=== PATIENT | male | born 1980 | race Hispanic/Latino ===

== ENCOUNTER 2024-09-28 21:14 | Emergency (ER) | payer OTHER, SELFPAY ==
[2024-09-28 21:14] VITALS: BMI 30.4
[2024-09-28 21:16] VITALS: BP 122/87
[2024-09-28 22:00] VITALS: BP 118/87
[2024-09-28] MEDS: XANAX 0.5 MG PO (22:23)
[2024-09-28 22:25] LABS: Urine Albumin Negative (Neg - Trace); Urine Bilirubin Negative (Negative); Urine Character Clear (Clear); Urine Color Yellow; Urine Glucose Negative (Negative); Urine Ketone Negative (Negative); Urine Leukocyte Negative (Negative); Urine Nitrite Negative (Negative); Urine Occult Blood 1+ (Negative); Urine Urobilinogen Negative (Neg - 1+)
[2024-09-28] MEDS: XANAX 1 MG PO (22:28)
[2024-09-28 22:36] LABS: % Basophils 0.6 % (0-2); % Eosinophils 1.1 % (0-6); % Immature Granulocytes 0.6 % (0-0.5); % Lymphocytes 18.2 % (20.5-51.1); % Monocytes 15.2 % (1.7-9.3); % Neutrophils 64.3 % (42.2-75.2); Absolute Basophils 0.1 10^3/uL (0-0.2); Absolute Eosinophils 0.1 10^3/uL (0-0.7); Absolute Immature Granulocytes 0.1 10^3/uL (0-0.05); Absolute Lymphocytes 1.5 10^3/uL (1.2-3.4); Absolute Monocytes 1.3 10^3/uL (0.1-0.6); Absolute Neutrophils 5.4 10^3/uL (1.4-6.5); Hematocrit 44.1 % (39.0-52.0); Mean Corpuscular Hgb 31.3 pg (27.0-31.0); Mean Corpuscular Volume 91.9 fL (80.0-94.0); Mean Platelet Volume 8.7 fL (7.4-10.4); Nucleated Red Blood Cells % 0 % (-); Platelet Count 225 10^3/uL (130-400); Red Cell Dist. Width 12.6 % (11.5-14.5); White Blood Cell Count 8.4 10^3/uL (4.8-10.8)
[2024-09-28 22:44] LABS: Amphetamines Negative (Negative); Barbiturates Negative (Negative); Benzodiazepines Negative (Negative); Buprenorphine Negative (Negative); Cocaine Negative (Negative); Marijuana Positive (Negative); Methadone Negative (Negative); Methamphetamines Negative (Negative); Opiates Negative (Negative); Phencyclidine Negative (Negative); Tricyclic Antidepressants Negative (Negative)
[2024-09-28 22:47] LABS: Urine Squamous Cell 0-2 /LPF (Few)
[2024-09-28 22:48] LABS: Urine Mucus Moderate; Urine Red Blood Cell 0-2 /HPF (0-2)
[2024-09-28 22:50] LABS: ALT (SGPT) 25 U/L (0-50); AST (SGOT) 22 U/L (17-59); Albumin 4.4 g/dl (3.5-5.0); Alkaline Phosphatase 64 U/L (38-126); Blood Urea Nitrogen 15 mg/dl (9-20); Calcium 9.4 mg/dl (8.4-10.2); Carbon Dioxide 32 mmol/L (22-30); Chloride 100 mmol/L (98-107); Estimated Creatinine Clearance 104 ml/min; Glucose 102 mg/dl (70-99); Potassium 3.9 mmol/L (3.5-5.1); Sodium 139 mmol/L (135-145); Total Bilirubin 0.8 mg/dl (0.2-1.3); Total Protein 7.4 g/dl (6.3-8.2); eGFR > 60.00
--- NOTE | 2024-09-28 23:21 | ED.GENMED ---
History of Present Illness
General
Chief Complaint: Suicidal Ideation
Source: patient
Exam Limitations: none
Time Seen by Provider: 09/28/24 21:24
Nursing documentation reviewed up to this point in time: agreed with
History of Present Illness
History of Present Illness:
43-year-old male past medical history of multiple psychiatric illnesses presenting to the emergency department today with concerns of suicidal ideation. Claims that he is had multiple times in the past where he is taken medications. He claims
earlier today he went to harm himself he claims that he would take medications to do so but decided come to the ER before he did anything. He took a few of his medications earlier today he is unsure of the specific medications. Denies taking any
large amount to the total of 3 but claims that he typically does take his medications daily. He was not able to recall the names of the medications. Denies any chest pain shortness of breath nausea vomiting numbness weakness feels very anxious at
this point. Denies any thoughts of harming anybody else.
Review of Systems
Review of Systems
Allergies reviewed?: Yes
All Other Systems: ROS reviewed and negative except as documented in HPI and ROS
Phy Exam
Physical Exam
Physical Exam:
GENERAL: Alert , in no apparent distress
EYE: pupils equal and reactive
NECK: Supple, no significant adenopathy.
ENT: o/p clr, mmm.
CARDIAC: Regular rate and rhythm .
LUNGS: Clear breath sounds bilaterally, no acute respiratory distress, no wheezes/rales/rhonchi
ABDOMEN: Soft, without focal tenderness, no r/g, no cvat
NEUROLOGICAL: Alert and oriented, no focal neuro deficits
SKIN: Warm and dry, skin intact.
MUSCULOSKELETAL: No edema, well perfused.
PSYCH: Normal and appropriate interaction.
Course
Orders/Labs/Results
Orders:
Orders
09/28/24 21:22
1:1 Observation - Suicide/ Violent Behavior As Directed
Crisis Consult Routine
Reason for Consult: suicidal ideation
09/28/24 22:03
EKG [Electrocardiogram (*1)] Urgent
Reason for Study: Chest Pain
Alprazolam [Xanax] 1 mg PO NOW STA
09/28/24 22:05
EKG- Treatment ONCE
09/28/24 22:06
Alprazolam [Xanax] 0.5 mg PO ONCE ONE
09/28/24 22:16
CBC/With Diff [Complete Blood Count/With Diff] Urgent
CMP [Comprehensive Metabolic Panel] Urgent
09/28/24 22:19
Drug Screen, Urine [Urine Drug Abuse Screen] Urgent
Date Specimen was Collected: 09/28/24
Time Specimen was Collected: 22:18
Urinalysis Reflex To Culture Urgent
Date Specimen was Collected: 09/28/24
Time Specimen was Collected: 22:18
Urine Microscopic Reflex Cult Urgent
09/29/24 03:30
Alprazolam [Xanax] 0.5 mg .ROUTE .STK-MED ONE
09/29/24 03:34
Alprazolam [Xanax] 0.5 mg PO NOW STA
Abnormal Lab Results
09/28/24 09/28/24
22:16 22:19
MCH 31.3 H pg
(27.0-31.0)
Abs Immat Gran (auto) 0.1 H 10^3/uL
(0-0.05)
Absolute Monos (auto) 1.3 H 10^3/uL
(0.1-0.6)
Immature Gran % 0.6 H %
(0-0.5)
Lymphocytes % 18.2 L %
(20.5-51.1)
Monocytes % 15.2 H %
(1.7-9.3)
Carbon Dioxide 32 H mmol/L
(22-30)
Glucose 102 H mg/dl
(70-99)
Ur Occult Blood Reflex 1+ A
(Negative)
U Marijuana (THC) Screen Positive H
(Negative)
09/28/24 22:16
09/28/24 22:16
Vital Signs
Initial and Last Documented VS:
Initial Vital Signs
Temp Pulse Resp BP Pulse Ox
98.2 F 107 20 122/87 97
09/28/24 21:16 09/28/24 21:16 09/28/24 21:16 09/28/24 21:16 09/28/24 21:16
Last Documented Vital Signs
Temp Pulse Resp BP Pulse Ox
98.2 F 88 18 118/87 99
09/28/24 21:16 09/28/24 22:00 09/28/24 23:00 09/28/24 22:00 09/28/24 22:00
MDM/Problems Addressed
MDM/Problems Addressed:
43-year-old male presenting to the emergency department today with concerns of suicidal ideation. He claims that he would like to kill himself. His plan would be to take pills. He claims that he tried to self in the past. Denies any thoughts of
harming anybody else. Initially mildly tachycardic but improving without specific treatment here. Patient was medication for anxiety. He claims he has taken benzodiazepines in the past that has been helpful. Labs obtained without acute
abnormalities.
*Critical Care Note
Total Time (30-74mins, 75-104mins- exclusive of procedures): Not Applicable
ED Attending Note
-
Portions of this chart may have been created with voice recognition software.� Occasional wrong word or��sound alike� substitutions may have occurred due to the inherent limitations of voice recognition software.
Discharge Plan
Departure
Patient Disposition: Psych Facility
Date of Disposition: 09/29/24
Time of Disposition: 01:58
Discharge Problem:
Suicidal ideation
Interventions
Interventions:
*Risk Screen - Suicide Last Done: 09/28/24 21:16
*General Assessment Last Done: 09/28/24 21:30
*Neglect/Abuse Screening Last Done: 09/28/24 21:16
ED- Fall Risk Assessment Last Done: 09/28/24 21:30
*ED COVID-19 Vaccine History Last Done: 09/28/24 23:57
*Nursing Disposition Last Done: 09/29/24 04:12
ED-Psychological Assessment Last Done: 09/28/24 21:30
Discharge Date and Time
Discharge Date/Time: 09/29/24 04:00
Print Language: CZECH
[2024-09-29] MEDS: XANAX 0.5 MG PO (03:35)
== END 2024-09-29 04:00 ==
LOC: EMR 21:14
PROVIDERS: Physician Assistant; EMERGENCY PHYSICIAN Student in an Organized Health Care Education/Training Program
DX: R45.851 Suicidal ideations (principal); F41.9 Anxiety disorder, unspecified; Z79.899 Other long term (current) drug therapy
CPT/HCPCS: 99285; 80053; 80306; 81003; 81015; 85025; 93005

== ENCOUNTER 2024-12-14 14:04 | Emergency (ER) | payer OTHER, SELFPAY ==
[2024-12-14 14:07] VITALS: BP 128/93
[2024-12-14] MEDS: ATIVAN 1 MG PO ×2 (14:42→22:08)
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
[2024-12-14 15:13] LABS: Amphetamines Negative (Negative); Barbiturates Negative (Negative); Benzodiazepines Negative (Negative); Buprenorphine Negative (Negative); Cocaine Negative (Negative); Marijuana Positive (Negative); Methadone Negative (Negative); Methamphetamines Negative (Negative); Opiates Negative (Negative); Phencyclidine Negative (Negative); Tricyclic Antidepressants Negative (Negative)
[2024-12-14 15:51] LABS: % Basophils 0.6 % (0-2); % Eosinophils 1.4 % (0-6); % Immature Granulocytes 0.8 % (0-0.5); % Lymphocytes 21.8 % (20.5-51.1); % Monocytes 12.9 % (1.7-9.3); % Neutrophils 62.5 % (42.2-75.2); Absolute Eosinophils 0.1 10^3/uL (0-0.7); Absolute Immature Granulocytes 0.1 10^3/uL (0-0.05); Absolute Lymphocytes 1.6 10^3/uL (1.2-3.4); Absolute Monocytes 0.9 10^3/uL (0.1-0.6); Absolute Neutrophils 4.5 10^3/uL (1.4-6.5); Hematocrit 44.7 % (39.0-52.0); Hemoglobin 15.4 g/dL (13.0-18.0); Mean Corp Hgb Conc. 34.5 g/dL (33.0-37.0); Mean Corpuscular Hgb 30.8 pg (27.0-31.0); Mean Corpuscular Volume 89.4 fL (80.0-94.0); Mean Platelet Volume 9.1 fL (7.4-10.4); Nucleated Red Blood Cells % 0 % (-); Platelet Count 221 10^3/uL (130-400); Red Cell Dist. Width 12.7 % (11.5-14.5); White Blood Cell Count 7.1 10^3/uL (4.8-10.8)
[2024-12-14 16:13] LABS: ALT (SGPT) 23 U/L (0-50); AST (SGOT) 25 U/L (17-59); Acetaminophen < 10 ug/ml (10-30); Albumin 4.2 g/dl (3.5-5.0); Alkaline Phosphatase 67 U/L (38-126); Blood Urea Nitrogen 14 mg/dl (9-20); Calcium 9.7 mg/dl (8.4-10.2); Carbon Dioxide 27 mmol/L (22-30); Chloride 104 mmol/L (98-107); Glucose 102 mg/dl (70-99); Potassium 3.9 mmol/L (3.5-5.1); Salicylate < 1.0 mg/dl (2.0-20.0); Sodium 140 mmol/L (135-145); Total Bilirubin 1.3 mg/dl (0.2-1.3); Total Protein 7.2 g/dl (6.3-8.2); eGFR > 60.00
[2024-12-14 16:18] LABS: Alcohol None Detected
[2024-12-14 22:01] VITALS: BP 125/86
== END 2024-12-15 00:42 ==
LOC: EMR 14:04
PROVIDERS: EMERGENCY PHYSICIAN Emergency Medicine
DX: R45.851 Suicidal ideations (principal)
CPT/HCPCS: 99285; 80053; 80143; 80179; 80306; 82077; 85025

== ENCOUNTER 2025-08-28 09:12 | Emergency (ER) | payer OTHER, SELFPAY ==
[2025-08-28 09:18] VITALS: BP 131/87
--- NOTE | 2025-08-28 09:22 | ED.GENMED ---
History of Present Illness
General
Chief Complaint: Musculo-Skeletal Complaint
Time Seen by Provider: 08/28/25 09:22
History of Present Illness
History of Present Illness:
FOCUSED PAST MEDICAL HISTORY
- History of TBI, substance abuse in past
REVIEW OF OLD RECORDS
- The patient was seen here with suicidal ideation in September of last year in December of this year and went to [place]
Note:
CHIEF COMPLAINT(S)
Severe pain from the second metacarpal of the right hand to the wrist.
HISTORY OF PRESENT ILLNESS
The patient is a 44-year-old male who presents with severe pain in the right hand, specifically from the second metacarpal extending down to the wrist. The pain is located primarily on the bone and the surrounding area of the hand. The patient
reports difficulty closing his hand. The pain began after lifting heavy pizza pans at work, suggesting a possible work-related etiology.
Upon review, an X-ray did not reveal any fractures. The patient expresses uncertainty about the possibility of having broken something, but X-ray findings rule that out. The pain impacts the patients ability to use the hand, as indicated by reduced
active range of motion linked to the pain.
There is moderate tenderness to palpation over the proximal aspect of the second metacarpal dorsally, with no signs of cellulitis noted. The patient had taken Tylenol the previous night for the pain but reports significant persistent discomfort.
PHYSICAL EXAM
General: Alert, no acute distress.
Skin: Warm, dry.
Head: Normocephalic, atraumatic.
Neck: Supple, trachea midline.
Eye Ears, Nose, Mouth and Throat: Oral mucosa moist.
Cardiovascular: Normal peripheral perfusion, no edema.
Respiratory: Respirations are non-labored.
Gastrointestinal: Abdomen nondistended.
Back: Normal range of motion, normal alignment.
Musculoskeletal: Limited active range of motion in the fingers of the right hand due to pain. Moderate tenderness over the proximal aspect of the second metacarpal on the dorsal side.
Neurological: Alert and oriented to person, place, time, and situation. No focal neurological deficit observed.
Psychiatric: Cooperative, appropriate mood & affect.
PLAN
1. Administered an injection of Toradol, a non-narcotic anti-inflammatory medication, for pain relief.
2. Provided a Velcro wrist splint to immobilize and support the hand.
3. Advised taking rynr-syr-oklbxyk Ibuprofen, 800 mg (four 200 mg tablets) every eight hours to manage inflammation and pain.
4. Recommended follow-up with an automation controls specialist if symptoms persist.
5. Suggested continuing with Tylenol for pain management if necessary, alongside Ibuprofen.
DIFFERENTIAL DIAGNOSIS
The Differential Diagnosis includes, in no particular order and is not limited to:
1. Tendonitis
2. Metacarpophalangeal joint sprain
3. Ligament sprain of the wrist
4. Bone contusion
5. Carpal tunnel syndrome
6. De Quervains tenosynovitis
7. Ganglion cyst
8. Fracture not visible on X-ray
9. Nerve impingement
10. Arthritis of the hand or wrist
Disposition:
SUMMARY OF ENCOUNTER
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 An X-ray was reviewed and showed no bony
abnormalities. Despite taking Tylenol, the patient reported persistent pain. In the emergency department, the patient was administered an intramuscular injection of Ketorolac (Toradol) to relieve pain. A Velcro wrist splint was provided for
immobilization and support to improve comfort and functionality. The patient was advised to take Ibuprofen at home for continued pain management and inflammation control.
ASSESSMENT
The patient is experiencing significant pain from the second metacarpal to the wrist in his right hand, possibly related to a work-related injury. Although the X-ray showed no fractures, symptoms suggest a soft tissue injury, such as tendonitis or a
joint or ligament sprain.
EMERGENCY TREATMENTS ADMINISTERED
Intramuscular injection of Ketorolac (Toradol) for pain relief.
PLAN
The patient was provided with a Velcro wrist splint to stabilize and support the hand. He was advised to take xvon-vmu-ginssho Ibuprofen 800 mg every eight hours for inflammation and pain management. Follow-up with an automation controls specialist was
recommended if symptoms persisted, and continuation with Tylenol was suggested if necessary.
INDEPENDENT REVIEW OF LABS AND INTERPRETATION OF TESTS
My independent interpretation of the X-ray is that there are no clear signs of acute bony abnormalities.
PATIENT EDUCATION AND COUNSELING
The patient was educated on the use of the wrist splint for immobilization and informed about the importance of taking Ibuprofen as directed for pain and inflammation. Encouraged to seek orthopedic evaluation if symptoms do not improve.
FOLLOW-UP INSTRUCTIONS
Follow-up with an automation controls specialist if symptoms persist.
MEDICATION RECONCILIATION
- Ketorolac (Toradol) administered via intramuscular injection in the emergency department.
- Recommended: Ibuprofen, 800 mg every eight hours for pain and inflammation.
- Suggested continuation of Tylenol for pain management if necessary.
MEDICAL DECISION MAKING
- Number and Complexity of Problems Addressed: Chronic conditions affecting care are not mentioned. Differential diagnosis includes tendonitis, metacarpophalangeal joint sprain, ligament sprain of the wrist, bone contusion, carpal tunnel syndrome,
De Quervains tenosynovitis, ganglion cyst, fracture not visible on X-ray, nerve impingement, arthritis in the hand or wrist.
- Data:
Category 1: My independent interpretation of the X-ray shows no acute bony abnormalities.
Category 2: Not applicable.
Category 3: Not applicable.
- Risk: Prescription medication was prescribed, specifically recommending Ibuprofen for pain and inflammation control.
DIAGNOSIS
- Sprain of metacarpal (S63.292A)
- Possible tendonitis or ligament sprain
RADIOLOGY
- I see no evidence of fracture on the x-ray of the right hand
Phy Exam
Physical Exam
Physical Exam:
See HPI
Course
Orders/Labs/Results
Orders:
Orders
08/28/25 09:21
CR Hand - Right Min 3 Views Urgent
Comment:
Reason For Exam: Injury
08/28/25 09:33
Christiana Wrist Right-Tx ONCE
Ketorolac [Toradol] 30 mg IM NOW STA
Vital Signs
Initial and Last Documented VS:
Initial Vital Signs
Temp Pulse Resp BP Pulse Ox
36.6 C 76 16 131/87 100
08/28/25 09:18 08/28/25 09:18 08/28/25 09:18 08/28/25 09:18 08/28/25 09:18
Last Documented Vital Signs
Temp Pulse Resp BP Pulse Ox
36.6 C 76 16 131/87 100
08/28/25 09:18 08/28/25 09:18 08/28/25 09:18 08/28/25 09:18 08/28/25 09:23
*Pulse Oximetry
SaO2: 100
Oxygen Mode of Delivery: Room air
Patient hypoxic: no
*Critical Care Note
Total Time (30-74mins, 75-104mins- exclusive of procedures): Not Applicable
ED Attending Note
-
Portions of this chart may have been created with voice recognition software.� Occasional wrong word or��sound alike� substitutions may have occurred due to the inherent limitations of voice recognition software.
Discharge Plan
Departure
Patient Disposition: Home (Routine Discharge)
Date of Disposition: 08/28/25
Time of Disposition: 09:35
Patient with high blood pressure during this ER visit?: Yes
Discharge Problem:
Sprain of hand, right
Instructions: BLOOD PRESSURE, Sprain
Referrals:
Adalid Fabian MD [Active, Orthopedics]
Activity Restrictions/Additional Instructions:
I recommend 3-4 kxej-vme-jmzszgd ibuprofen (Motrin) every 8 hours with food for a few days. Return here if worse. We gave you a dose of Toradol today which is an anti-inflammatory medicine similar to Motrin. If you do take the Motrin you could
also take Tylenol as they work in different ways. However I feel that Motrin works better than Tylenol would. Use the splint for comfort and I have also given you the contact information of Dr. Fabian a local orthopedist if pain persists.
Interventions
Interventions:
*Risk Screen - Suicide Last Done: 08/28/25 09:51
*General Assessment Last Done: 08/28/25 09:51
*Neglect/Abuse Screening Last Done: 08/28/25 09:51
*ED- Fall Risk Assessment Last Done: 08/28/25 09:51
*ED COVID-19 Vaccine History Last Done: 08/28/25 09:51
*ED Influenza Vaccine History Last Done: 08/28/25 09:51
*Nursing Disposition Last Done: 08/28/25 09:57
ED-Musculoskeletal Assessment Last Done: 08/28/25 09:51
Discharge Date and Time
Discharge Date/Time: 08/28/25 09:58
Print Language: MOHAWK
[2025-08-28] MEDS: TORADOL 30 MG IM (09:37)
== END 2025-08-28 09:58 | disposition home or self-care (01) ==
LOC: EMR 09:12
PROVIDERS: EMERGENCY PHYSICIAN Emergency Medicine
DX: S63.91XA Sprain of unspecified part of right wrist and hand, initial encounter (principal); X50.0XXA Overexertion from strenuous movement or load, initial encounter; Y99.0 Civilian activity done for income or pay; R03.0 Elevated blood-pressure reading, without diagnosis of hypertension; Z87.820 Personal history of traumatic brain injury
CPT/HCPCS: 99284; 96372; 29125; 73130